=== PATIENT | female | born 1960 | race American Indian/Alaskan Native ===

== ENCOUNTER 2017-02-16 07:44 | Day surgery (SDC) | payer OTHER ==
[2017-02-16] MEDS ORDERED: NACL 0.9% 500 ML 500 ML IV SCH (10:00)
[2017-02-16 10:39] LABS: Basophils % (Auto) 0.7 % (0.0-1.8); Eosinophils % (Auto) 1.6 % (0.0-4.3); Hematocrit 41.3 % (30.3-42.9); Hemoglobin 13.7 gm/dl (10.1-14.3); Mean Corpuscular HGB Conc 33 % (30-34); Mean Corpuscular Hemoglobin 33 pg (28-32); Mean Corpuscular Volume 100 fl (79-97); Platelet Count 191 K/mm3 (140-440); Red Blood Count 4.13 M/mm3 (3.65-5.03); Red Cell Distribution Width 14.2 % (13.2-15.2); White Blood Count 6.3 K/mm3 (4.5-11.0)
[2017-02-16 10:50] LABS: INR 4.81 (0.87-1.13)
[2017-02-16] MEDS ORDERED: ECOTRIN PO ONE (11:30)
[2017-02-16 12:11] LABS: Anion Gap 21 mmol/L; BUN/Creatinine Ratio 27.14; Blood Urea Nitrogen 19 mg/dL (7-17); Carbon Dioxide 23 mmol/L (22-30); Chloride 103.8 mmol/L (98-107); Glucose 91 mg/dL (65-100); Potassium 4.4 mmol/L (3.6-5.0); Sodium 143 mmol/L (137-145)
[2017-02-16 12:50] LABS: INR 1.31 (0.87-1.13)
[2017-02-16 12:51] LABS: Partial Thromboplastin Time 27.2 Sec. (24.2-36.6)
[2017-02-16] MEDS ORDERED: VERSED ONE (13:13)
[2017-02-16] MEDS ORDERED: SUBLIMAZE ONE (13:13)
[2017-02-16] MEDS ORDERED: HEPARIN/NS 5000 UNIT/500ML(CATH LAB) 1,000 ML IR ONE (13:14)
[2017-02-16] MEDS ORDERED: XYLOCAINE 2% INFILTRATI ONE (13:14)
[2017-02-16] MEDS ORDERED: HEPARIN 10,000 UNITS/10 ML ONE (13:14)
[2017-02-16] MEDS ORDERED: NITROGLYCERIN SYRINGE 3 ML ONE (13:14)
[2017-02-16] MEDS ORDERED: CALAN ONE (13:15)
--- NOTE | 2017-02-16 13:55 | Short Stay Summary ---
Short Stay Documentation Date of service: 02/16/17 - History H&P: obtained from office - Allergies and Medications Current Medications: Allergies codeine Adverse Reaction (Verified 02/16/17 09:29) Itching Home Medications Medication Instructions Recorded Confirmed Last Taken Type Aspirin EC 81 mg PO DAILY 02/16/17 02/16/17 02/15/17 History Flecainide [Tambocor] 100 mg PO DAILY 02/16/17 02/16/17 02/16/17 History Metoprolol Tartrate 50 mg PO BID 02/16/17 02/16/17 02/15/17 History Active Medications Sodium Chloride (Nacl 0.9% 500 Ml) 500 mls @ 50 mls/hr IV DIRECT ALEX Stop: 02/16/17 19:59 - Physical exam General appearance: no acute distress Integumentary: no rash HEENT: Atraumatic Lungs: Clear to auscultation Breasts: deferred Heart: Regular rate Gastrointestinal: normal Female Genitourinary: deferred Rectal Exam: deferred Extremities: no ischemia Neurological: Normal gait - Brief post op/procedure progress note Date of procedure: 02/16/17 Pre-op diagnosis: Abnormal MPI, SOB Post-op diagnosis: same Procedure: LHC, LV gram Anesthesia: MAC Findings: See report Surgeon: AYAD JONES Estimated blood loss: none Pathology: none Condition: stable - Hospital course Hospital course: Uneventful - Disposition Condition at discharge: Good Disposition: DC-01 TO HOME OR SELFCARE Short Stay Discharge Plan Activity: advance as tolerated Weight Bearing Status: Partial Weight Bearing Diet: low cholesterol, low salt Follow up with: KWASI OLGUIN MD [Primary Care Provider] - 7 Days
[2017-02-16 15:17] VITALS: BP 134/86
--- NOTE | 2017-02-16 16:20 | Cardiac Catherization Report ---
INDICATIONS: Shortness of breath, stable angina, abnormal myocardial perfusion scan. ORDERING PHYSICIAN: Luis Hays MD PROCEDURES PERFORMED: 1. Selective left and right coronary angiography. 2. Left ventriculography. DESCRIPTION OF PROCEDURE: After obtaining written consent, the patient was draped using sterile technique. A 2% lidocaine was injected into the right wrist. A 6-[place] vascular sheath was inserted into the right radial artery. A 6-[place] JL3.5 catheter was used to selectively engage the left coronary artery. A 6-[place] JR4 catheter was used to selectively engage the right coronary artery. A 6-[place] JR4 catheter was used to hand inject the left ventriculogram. No complications occurred during the procedure. Hemostasis was achieved at the end of the procedure using manual pressure. ESTIMATED BLOOD LOSS: Minimal. SPECIMEN REMOVED: None. FINDINGS: CARDIAC STRUCTURES: The left ventricle is normal in size and systolic function. The left ventricular ejection fraction measured at 60%. HEMODYNAMICS: The aortic pressure was 133/70. The left ventricular systolic pressure was 126 mmHg. There was no significant gradient across the left ventricular outflow tract. The left ventricular end-diastolic pressure could not be measured due to technical problems. CORONARY ANATOMY: 1. This is a left dominant circulation. 2. The left main is a short vessel that is angiographically normal. 3. The left anterior descending artery has mild nonobstructive luminal disease with a 20% luminal compromise. 4. There is evidence of a small caliber ramus intermedius with no significant obstructive disease. 5. The left circumflex artery is a dominant large caliber vessel with 10-20% diffuse disease and no evidence of flow limiting lesions. 6. The right coronary artery is a small nondominant vessel with 30% percent tubular lesion proximally. IMPRESSION: 1. Nonobstructive coronary artery disease. 2. Normal left ventricular size and systolic function with an ejection fraction estimated at 60%. 3. No gradient across the left ventricular outflow tract. RECOMMENDATIONS: Continue current medical therapy and follow up with referring power press tender. JOB# [id number] MARIXA/RAFAEL
== END 2017-02-16 16:40 | disposition home or self-care (01) ==
LOC: OPU 07:44
PROVIDERS: ATTEND Internal Medicine
DX: I25.118 Atherosclerotic heart disease of native coronary artery with other forms of angina pectoris (principal); I10 Essential (primary) hypertension; E78.5 Hyperlipidemia, unspecified; Z88.5 Allergy status to narcotic agent; Z79.82 Long term (current) use of aspirin; Z79.899 Other long term (current) drug therapy; Z98.890 Other specified postprocedural states; Z98.51 Tubal ligation status; Z82.49 Family history of ischemic heart disease and other diseases of the circulatory system; Z83.49 Family history of other endocrine, nutritional and metabolic diseases
CPT/HCPCS: 36415; 80048; 85025; 85610; 85730; 93005; 93010; 93458; C1894; J1644; J2250; J3010; J7040; Q9967

== ENCOUNTER 2017-06-29 09:23 | Outpatient (CLI) | payer OTHER ==
--- NOTE | 2017-06-29 11:58 | Mammography Report ---
BILATERAL MAMMOGRAM: FINDINGS: The breast tissue is heterogeneously dense, which could obscure detection of small masses (approximately 50%-75% glandular). No mass, distortion, suspicious calcification, or skin change is seen. CAD was utilized. IMPRESSION: Negative mammogram. There is no mammographic evidence of malignancy. RECOMMENDATION: Follow-up per ACS guidelines. BI-RADS CATEGORY: 1 = Negative ACR BI-RADS MAMMOGRAPHIC CODES: 0 = Needs additional imaging evaluation; 1 = Negative; 2 = Benign; 3 = Probably benign; 4 = Suspicious; 5 = Malignant; 6 = Known biopsy-proven malignancy COMMENT: 1. Dense breast tissue, i.e., adenosis, fibrocystic changes, etc., may obscure an underlying neoplasm. 2. Approximately 10% of cancers are not detected with mammography. 3. A negative mammography report should not delay biopsy if a clinically suspicious mass is present. COMMENT: Patient follow-up letters are generated in [employer].
== END 2017-06-29 09:24 | disposition home or self-care (01) ==
LOC: MAMMO 09:23
PROVIDERS: ATTEND Nurse Practitioner Gerontology
DX: Z12.31 Encounter for screening mammogram for malignant neoplasm of breast (principal)
CPT/HCPCS: 77067; G0202